=== PATIENT | female | born 1990 ===

== ENCOUNTER 2017-11-17 04:32 | Emergency (ER) | payer OTHER ==
[2017-11-17 05:03] VITALS: RESP 16; O2SAT 100
[2017-11-17] MEDS ORDERED: Sodium Chloride 0.9% 1,000 ML IV STA ×2 (05:55)
--- NOTE | 2017-11-17 05:57 | ED PDOC ---
HPI: General Adult Time Seen by Provider: 11/17/17 05:14 Chief Complaint (Nursing): Flu-like Symptoms Chief Complaint (Provider): Flu-Like Symptoms History Per: Patient History/Exam Limitations: no limitations Onset/Duration Of Symptoms: Days (x8) Current Symptoms Are (Timing): Still Present Recently: Seen In ED (seen x7 days ago) Additional Complaint(s): 27 year old female presents to ED with complaints of flu-like symptoms x8 days and has no past medical history. (+) throat pain, body aches, headache, chills, fever, cough, congestion, chest pain, nausea, and diarrhea. Patient states she presented to [facility] ED x7 days ago with the same presentation, was diagnosed with influenza, and discharged with Tamiflu. Notes that treatment did not mitigate symptoms. Confirms taking Tylenol and Motrin for relief. PCP: Clinic Past Medical History Reviewed: Historical Data, Nursing Documentation, Vital Signs Vital Signs: Last Vital Signs Temp 98.4 F 11/17/17 09:41 Pulse 82 11/17/17 09:41 Resp 16 11/17/17 09:41 BP 115/80 11/17/17 09:41 Pulse Ox 100 11/17/17 11:15 - Medical History PMH: No Chronic Diseases - Surgical History Surgical History: No Surg Hx - Family History Family History: States: No Known Family Hx - Social History Current smoker - smoking cessation education provided: No Ex-Smoker (has not smoked in the last 12 months): No Alcohol: None Drugs: Denies - Home Medications Home Medications: Ambulatory Orders Medication Instructions Recorded Lidocaine 2% Viscous 10 ml MM Q4H PRN #1 bottle 11/17/17 Naproxen [Naprosyn] 500 mg PO BID PRN #20 tablet 11/17/17 Penicillin VK [Penicillin VK Tab] 500 mg PO BID #20 tab 11/17/17 - Allergies Allergies/Adverse Reactions: Allergies Allergy/AdvReac Type Severity Reaction Status Date / Time No Known Allergies Allergy Verified 11/17/17 05:03 Review of Systems ROS Statement: Except As Marked, All Systems Reviewed And Found Negative Constitutional: Positive for: Fever, Chills, Other ((+) body aches) ENT: Positive for: Throat Pain Cardiovascular: Positive for: Chest Pain Respiratory: Positive for: Cough Gastrointestinal: Positive for: Nausea, Diarrhea Neurological: Positive for: Headache Physical Exam - Reviewed Nursing Documentation Reviewed: Yes Vital Signs Reviewed: Yes - Physical Exam Appears: Positive for: Non-toxic, Uncomfortable Skin: Positive for: Normal Color, Warm, Dry Eye Exam: Positive for: Normal appearance, EOMI, PERRL ENT: Positive for: Tonsillar Swelling (tonsils enlarged bilaterally), Other ( tonsillar hyperemia). Negative for: Normal ENT Inspection Cardiovascular/Chest: Positive for: Regular Rate, Rhythm. Negative for: Murmur Respiratory: Positive for: Normal Breath Sounds. Negative for: Respiratory Distress Gastrointestinal/Abdominal: Positive for: Soft. Negative for: Tenderness Extremity: Positive for: Normal ROM. Negative for: Deformity Neurologic/Psych: Positive for: Alert, Oriented. Negative for: Motor/Sensory Deficits - Laboratory Results Result Diagrams: 11/17/17 06:30 11/17/17 06:30 - ECG O2 Sat by Pulse Oximetry: 100 (RA) Pulse Ox Interpretation: Normal Medical Decision Making Medical Decision Makin Initial impression: flu-like symptoms, chest pain DDx: tonsillitis, continuation of flu, PNA, peritonsillar abscess Initial plan: * Labs * NS IV * Blood Cx * Castro * Rapid strep 0617 Rapid strep: positive 0623 * CT NECK SOFT TISSUE * CXR * Dexamethasone 50mL IV * Re-eval Scribe Attestation: Documented by Kaylen Girard acting as a scribe for Jarrett Mcmanus MD. Scribe Attestation: All medical record entries made by the Scribe were at my direction and personally dictated by me. I have reviewed the chart and agree that the record accurately reflects my personal performance of the history, physical exam, medical decision making, and the department course for this patient. I have also personally directed, reviewed, and agree with the discharge instructions and disposition. Disposition - Clinical Impression Clinical Impression: Strep sore throat - Patient ED Disposition Is Patient to be Admitted: Transfer of Care - Disposition Referrals: [facility] [Outside] [facility] [Outside] Disposition: Transfer of Care Disposition Time: 07:00 Condition: STABLE Prescriptions: Lidocaine 2% Viscous 10 ml MM Q4H PRN #1 bottle PRN Reason: Sore Throat Naproxen [Naprosyn] 500 mg PO BID PRN #20 tablet PRN Reason: Pain, Moderate (4-7) Penicillin VK [Penicillin VK Tab] 500 mg PO BID #20 tab Instructions: Strep Throat (ED) Print Language: PERSIAN
[2017-11-17] MEDS ORDERED: Dexamethasone 10 MG in Sodium Chloride 0.9% 50 ML IV ONE (06:17)
[2017-11-17 07:01] LABS: BASO # 0.1 K/uL (0.0-0.2); BASO % 0.4 % (0.0-2.0); EOS % 0.2 % (0.0-4.0); HEMOGLOBIN 13.1 g/dL (12.0-16.0); LYMPH # 1.1 K/uL (1.0-4.3); LYMPH % 7.4 % (20.0-40.0); MEAN CELL VOLUME 85.5 fl (81.0-99.0); MEAN PLATELET VOLUME 8.6 fl (7.2-11.7); MONO # 0.8 K/uL (0.0-0.8); MONO % 5.5 % (0.0-10.0); NEUT # 12.7 K/uL (1.8-7.0); NEUT % 86.5 % (50.0-75.0); PLATELET COUNT 217 K/uL (130-400); RBC 4.08 Mil/uL (3.80-5.20); WHITE BLOOD COUNT 14.6 K/uL (4.8-10.8)
[2017-11-17 07:08] LABS: BLOOD UREA NITROGEN 9 mg/dl (7-17); CALCIUM 9.2 mg/dL (8.4-10.2); GFR AFRICAN-AMERICAN > 60; GFR NON-AFRICAN AMERICAN > 60
[2017-11-17] MEDS ORDERED: Clindamycin 300 MG in Sodium Chloride 0.9% 50 ML IVPB STA (07:13)
[2017-11-17 07:51] LABS: MEAN CORPUSCULAR HGB CONC 33.9 g/dL (33.0-37.0)
[2017-11-17] MEDS ORDERED: Sodium Chloride 0.9% 50 ML IV ONE (08:39)
[2017-11-17] MEDS ORDERED: Iohexol 300 100 ML IJ ONE (08:39)
[2017-11-17 09:41] LABS: BANDS 1 % (0-2); BASOPHIL 1 % (0-2); LYMPHOCYTE 9 % (20-50); MONOCYTE 5 % (0-10); NEUTROPHIL 84 % (42-75); PLATELET ESTIMATE NORMAL (NORMAL); TOTAL CELLS COUNTED 100
[2017-11-17 09:42] VITALS: BP 115/80; PULSE 82; TEMP 98.4
[2017-11-17 09:42] LABS: LARGE PLATELETS PRESENT; PLATELET CLUMPS PRESENT
--- NOTE | 2017-11-17 10:28 | CT ---
PROCEDURE: CT NECK WITH CONTRAST HISTORY: tonsillitis, sore throat COMPARISON: None TECHNIQUE: CT of the neck with intravenous contrast. Coronal and sagittal reformats generated. Intravenous contrast dose: 90 mL Omnipaque 300 Radiation dose: DLP 426.32 mGy-cm This CT exam was performed using one or more of the following dose reduction techniques: Automated exposure control, adjustment of the mA and/or kV according to patient size, and/or use of iterative reconstruction technique. FINDINGS: NASOPHARYNX: Marked prominence adenoidal tonsillar soft tissue SUPRAHYOID NECK: Prominence of the tonsillar pillars and lingual tonsils may reflect tonsillitis. No evidence of peritonsillar abscess at this time. The parapharyngeal space is clear. The intrinsic muscles of the tongue are symmetric. INFRAHYOID NECK: Unremarkable larynx, hypopharynx, and supraglottic space. Vocal cords intact. MASS: None. GLANDS: Parotid and submandibular glands unremarkable. Normal size thyroid gland, without nodule. LYMPH NODES: Shotty cervical lymph nodes in levels 1 through 4 without pathologically enlarged lymph nodes, 1.5 cm or greater. Likely reactive. CERVICAL SPINE: No fracture or focal lesion. VASCULAR STRUCTURES: Unremarkable. OTHER FINDINGS: None. IMPRESSION: Enlargement of the palatine and lingual tonsils and adenoidal tonsils. No evidence of peritonsillar abscess. Probable reactive lymphadenopathy bilaterally without pathologically enlarged nodes.
--- NOTE | 2017-11-17 11:14 | RAD ---
HISTORY: fever cough chest pain COMPARISON: No prior. TECHNIQUE: Chest PA and lateral FINDINGS: LUNGS: No active pulmonary disease. PLEURA: No significant pleural effusion identified. No pneumothorax apparent. CARDIOVASCULAR: Normal. OSSEOUS STRUCTURES: No significant abnormalities. VISUALIZED UPPER ABDOMEN: Normal. OTHER FINDINGS: None. IMPRESSION: No active disease.
--- NOTE | 2017-11-17 11:14 | ED PDOC ---
- Laboratory Results Result Diagrams: 11/17/17 06:30 11/17/17 06:30 - ECG O2 Sat by Pulse Oximetry: 100 Medical Decision Making Medical Decision Making: CT scan of the neck - no evidence of abscess. Basilio has strep. Will d/c with penicillin and lidocaine. Disposition Doctor Will See Patient In The: Office Counseled Patient/Family Regarding: Diagnosis, Need For Followup, Rx Given - Clinical Impression Clinical Impression: Strep sore throat - POA Present On Arrival: None - Disposition Referrals: [facility] [Outside] [facility] [Outside] Disposition: Routine/Home Disposition Time: 10:50 Condition: STABLE Prescriptions: Lidocaine 2% Viscous 10 ml MM Q4H PRN #1 bottle PRN Reason: Sore Throat Naproxen [Naprosyn] 500 mg PO BID PRN #20 tablet PRN Reason: Pain, Moderate (4-7) Penicillin VK [Penicillin VK Tab] 500 mg PO BID #20 tab Instructions: Strep Throat (ED) Forms: [facility] (Uzbek) Print Language: [place]IZ[place]
== END 2017-11-17 11:39 | disposition home or self-care (01) ==
LOC: H.ER 04:32
DX: J02.0 Streptococcal pharyngitis (principal)
CPT/HCPCS: 70491; 71046; 80048; 81025; 85025; 86308; 87040; 87430; 96361; 96365; 96375; 99284; J1100; J1885; J2405; J7040; Q9967